=== PATIENT | male | born 1955 | race Caucasian/White ===

== ENCOUNTER 2017-10-13 04:48 | Emergency (ER) | payer OTHER ==
[2017-10-13] MEDS ORDERED: FLUORESCEIN SODIUM 0.6 MG/WRAP ONE (04:58)
[2017-10-13] MEDS ORDERED: TETRACAINE HCL 0.5% 2ML OPTH ONE (04:58)
[2017-10-13] MEDS ORDERED: NEO/BAC/POLY/HC OPTH OINT ONE ×2 (05:12→05:14)
--- NOTE | 2017-10-13 05:21 | ER ---
Nurse's Notes [facility] Name: Bayron Marques Age: 62 yrs Sex: Male : 1955 Arrival Date: 10/13/2017 Time: 04:53 Bed 5 Private MD: Marco A Hayes Diagnosis: Ocular pain, right eye Presentation: 10/13 05:00 Presenting complaint: Patient states: "I think I have something in my right eye." ao Patient reports mowing grass yesterday then then he felt something in his eye. Transition of care: patient was not received from another setting of care. Onset of symptoms was October 12, 2017 at 20:00. Initial Sepsis Screen: Does the patient meet any 2 criteria? No. Patient's initial sepsis screen is negative. Does the patient have a suspected source of infection? No. Patient's initial sepsis screen is negative. Care prior to arrival: None. 05:00 Method Of Arrival: Ambulatory ao 05:00 Acuity: SHRUTHI 4 ao Triage Assessment: 05:04 General: Appears in no apparent distress. distressed, comfortable, Behavior is calm, ao cooperative, appropriate for age. Pain: Complains of pain in right eye. Historical: - Allergies: 05:03 No Known Allergies; ao - Home Meds: 05:03 metformin 500 mg Oral tab 1 tab 2 times per day [Active]; ao - PMHx: 05:03 Diabetes - NIDDM; ao - PSHx: 05:03 None; ao - Immunization history:: Adult Immunizations up to date. - Social history:: Smoking status: Patient/guardian denies using tobacco, Patient/guardian denies using alcohol, street drugs. - Family history:: not pertinent. Screenin:04 Abuse screen: Denies threats or abuse. Denies injuries from another. Nutritional ao screening: No deficits noted. Tuberculosis screening: No symptoms or risk factors identified. Fall Risk None identified. Assessment: 05:05 General: Appears in no apparent distress. comfortable, Behavior is calm, cooperative, ao appropriate for age. Pain: Complains of pain in right eye. Neuro: Level of Consciousness is awake, alert, obeys commands, Oriented to person, place, time, situation, Appropriate for age Moves all extremities. Speech is normal, Facial symmetry appears normal, Pupils are PERRLA. Cardiovascular: Patient's skin is warm and dry. Respiratory: Airway is patent Respiratory effort is even, unlabored, Respiratory pattern is regular, symmetrical. GI: Abdomen is non-distended. : No signs and/or symptoms were reported regarding the genitourinary system. EENT: Eyes are tearing on right eye. Derm: No signs and/or symptoms reported regarding the dermatologic system. Musculoskeletal: No signs and/or symptoms reported regarding the musculoskeletal system. Vital Signs: 05:02 BP 172 / 100; Pulse 61; Resp 20; Temp 97.9(O); Pulse Ox 98% on R/A; Weight 86.18 kg ao (R); Height 5 ft. 6 in. (167.64 cm) (R); Pain 3/10; 05:22 BP 152 / 88; Pulse 62; Resp 18; Temp 97.9(O); Pulse Ox 98% on R/A; Pain 1/10; ak1 05:02 Body Mass Index 30.67 (86.18 kg, 167.64 cm) ao ED Course: 04:53 Patient arrived in ED. es 04:53 Marco A Hayes MD is Private Physician. es 05:01 Triage completed. ao 05:01 Arm band placed on right wrist. Patient placed in an exam room, on a stretcher, on ao pulse oximetry. 05:02 Jayy Lucas MD is Attending Physician. teddy 05:04 Patient has correct armband on for positive identification. Pulse ox on. NIBP on. ao 05:17 Jolene Pires, RN is Primary Nurse. ak1 05:18 Assist provider with eye exam eye tray and medications at bedside for ERP's use. ak1 05:21 Luke Manzano MD is Referral Physician. teddy 05:22 Patient did not have IV access during this emergency room visit. ak1 Administered Medications: 05:17 Drug: Tetracaine Drops 0.5 % 1 drops {Note: placed at bedside for ERP to administer.} ak1 Route: Ophthalmic; Site: right eye; 05:33 Follow up: Response: Pain is decreased ak1 05:18 Drug: Poyalzdm-Tppktjxsri-Lgzuvxkdx 0.5 inches {Note: administered by ERP..} Route: ak1 Ophthalmic; Site: right eye; 05:33 Follow up: Response: No adverse reaction; Pain is decreased ak1 Outcome: 05:21 Discharge ordered by MD. espinal 05:22 Condition: improved ak1 05:33 Discharged to home ambulatory, with family. ak1 05:33 Discharge instructions given to patient, Instructed on discharge instructions, follow up and referral plans. medication usage, 10 am follow up call to Dr. Manzano Demonstrated understanding of instructions, follow-up care, medications, Prescriptions given X 2. 05:34 Patient left the ED. ak1 Signatures: Jayy Lucas MD MD cha Salyer, Edna es Krenek, Amber RN RN ak1 Keith Luke RN RN ao
--- NOTE | 2017-10-13 05:21 | EDPHYS ---
Physician Documentation [facility] Name: Bayron Marques Age: 62 yrs Sex: Male : 1955 Arrival Date: 10/13/2017 Time: 04:53 Bed 5 Private MD: Marco A Hayes ED Physician Jayy Lucas HPI: 10/13 05:17 This 62 yrs old Male presents to ER via Ambulatory with complaints of Eye teddy Problem. 05:17 The patient is experiencing foreign body sensation, The patient sustained an abrasion. teddy Onset: The symptoms/episode began/occurred just prior to arrival, this morning. Duration: the symptoms are continuous. Aggravated by blinking, closing eye. Associated signs and symptoms: Pertinent positives: None. Patient wears glasses. Severity of symptoms: At their worst the symptoms were mild in the emergency department the symptoms are unchanged. The patient has not experienced similar symptoms in the past. Historical: - Allergies: 05:03 No Known Allergies; ao - Home Meds: 05:03 metformin 500 mg Oral tab 1 tab 2 times per day [Active]; ao - PMHx: 05:03 Diabetes - NIDDM; ao - PSHx: 05:03 None; ao - Immunization history:: Adult Immunizations up to date. - Social history:: Smoking status: Patient/guardian denies using tobacco, Patient/guardian denies using alcohol, street drugs. - Family history:: not pertinent. ROS: 05:17 Constitutional: Negative for fever, chills, and weight loss, ENT: Negative for injury, teddy pain, and discharge, Neck: Negative for injury, pain, and swelling, Cardiovascular: Negative for chest pain, palpitations, and edema, Respiratory: Negative for shortness of breath, cough, wheezing, and pleuritic chest pain, Abdomen/GI: Negative for abdominal pain, nausea, vomiting, diarrhea, and constipation, Back: Negative for injury and pain, : Negative for injury, bleeding, discharge, and swelling, MS/Extremity: Negative for injury and deformity, Skin: Negative for injury, rash, and discoloration, Neuro: Negative for headache, weakness, numbness, tingling, and seizure, Psych: Negative for depression, anxiety, suicide ideation, homicidal ideation, and hallucinations, Allergy/Immunology: Negative for hives, rash, and allergies, Endocrine: Negative for neck swelling, polydipsia, polyuria, polyphagia, and marked weight changes, Hematologic/Lymphatic: Negative for swollen nodes, abnormal bleeding, and unusual bruising. 05:17 Eyes: Positive for foreign body sensation, of the outer aspect of conjuctiva of right eye, iris of right eye and inner aspect of conjuctiva of right eye. Exam: 05:17 Constitutional: This is a well developed, well nourished patient who is awake, alert, teddy and in no acute distress. Head/Face: Normocephalic, atraumatic. ENT: Nares patent. No nasal discharge, no septal abnormalities noted. Tympanic membranes are normal and external auditory canals are clear. Oropharynx with no redness, swelling, or masses, exudates, or evidence of obstruction, uvula midline. Mucous membranes moist. Neck: Trachea midline, no thyromegaly or masses palpated, and no cervical lymphadenopathy. Supple, full range of motion without nuchal rigidity, or vertebral point tenderness. No Meningismus. Chest/axilla: Normal chest wall appearance and motion. Nontender with no deformity. No lesions are appreciated. Cardiovascular: Regular rate and rhythm with a normal S1 and S2. No gallops, murmurs, or rubs. Normal PMI, no JVD. No pulse deficits. Respiratory: Lungs have equal breath sounds bilaterally, clear to auscultation and percussion. No rales, rhonchi or wheezes noted. No increased work of breathing, no retractions or nasal flaring. Abdomen/GI: Soft, non-tender, with normal bowel sounds. No distension or tympany. No guarding or rebound. No evidence of tenderness throughout. Back: No spinal tenderness. No costovertebral tenderness. Full range of motion. Male : Normal genitalia with no discharge or lesions. Skin: Warm, dry with normal turgor. Normal color with no rashes, no lesions, and no evidence of cellulitis. MS/ Extremity: Pulses equal, no cyanosis. Neurovascular intact. Full, normal range of motion. Neuro: Awake and alert, GCS 15, oriented to person, place, time, and situation. Cranial nerves II-XII grossly intact. Motor strength 5/5 in all extremities. Sensory grossly intact. Cerebellar exam normal. Normal gait. Psych: Awake, alert, with orientation to person, place and time. Behavior, mood, and affect are within normal limits. 05:17 Eyes: Periorbital structures: appear normal, no acute changes, Pupils: no acute changes, equal, round, and reactive to light and accomodation, Extraocular movements: intact throughout, Conjunctiva: normal, no acute changes, Corneas: are normal, Sclera: no appreciated abnormality, no acute changes, Anterior chamber: normal, no acute changes, Lids and lashes: appear normal, no acute changes, funduscopic exam reveals no obvious abnormalities, Nystagmus: is not appreciated. Vital Signs: 05:02 BP 172 / 100; Pulse 61; Resp 20; Temp 97.9(O); Pulse Ox 98% on R/A; Weight 86.18 kg ao (R); Height 5 ft. 6 in. (167.64 cm) (R); Pain 3/10; 05:22 BP 152 / 88; Pulse 62; Resp 18; Temp 97.9(O); Pulse Ox 98% on R/A; Pain 1/10; ak1 05:02 Body Mass Index 30.67 (86.18 kg, 167.64 cm) ao MDM: 05:02 Patient medically screened. [facility] 10/13 05:15 Order name: Eye Tray; Complete Time: 05:18 [facility] 10/13 05:15 Order name: Fluoresene Opth strip; Complete Time: 05:18 [facility] Administered Medications: 05:17 Drug: Tetracaine Drops 0.5 % 1 drops {Note: placed at bedside for ERP to administer.} ak1 Route: Ophthalmic; Site: right eye; 05:33 Follow up: Response: Pain is decreased [facility] 05:18 Drug: Lkylslov-Aeevfbhnnu-Qqygrpjti 0.5 inches {Note: administered by ERP..} Route: ak1 Ophthalmic; Site: right eye; 05:33 Follow up: Response: No adverse reaction; Pain is decreased ak1 Disposition: 10/13/17 05:21 Discharged to Home. Impression: Ocular pain, right eye. - Condition is Stable. - Discharge Instructions: Pain Without a Known Cause. - Prescriptions for neomycin- bacitracin-polymyxin 3.5-400-10,000 jx-jxgi-mgrw/g Ophthalmic ointment - apply 1 inch ribbon by OPHTHALMIC route every 4 hours for 10 days; 3.5 gram. Tylenol- Codeine #3 300-30 mg Oral Tablet - take 2 tablet by ORAL route every 6 hours As needed; 30 tablet. - Medication Reconciliation Form, Thank You Letter, Antibiotic Education, Prescription Opioid Use form. - Follow up: Luke Manzano MD; When: Today; Reason: Recheck today's complaints, Continuance of care, Re-evaluation by your physician. - Problem is new. - Symptoms have improved. Signatures: Jayy Lucas MD MD cha Krenek, Amber RN RN ak1 Keith Luke RN RN ao
== END 2017-10-13 05:34 | disposition home or self-care (01) ==
LOC: ER 04:48
DX: H57.11 Ocular pain, right eye (principal); E11.9 Type 2 diabetes mellitus without complications
CPT/HCPCS: 99284